=== PATIENT | male | born 1960 | race Caucasian/White ===

== ENCOUNTER 2017-02-08 13:24 | Emergency (ER) | payer OTHER ==
[~2017-02-08] VITALS: Wt 64.0 kg
[2017-02-08] MEDS ORDERED: ACETAMINOPHEN 325 MG TAB PO STA (13:58)
[2017-02-08] MEDS ORDERED: IBUPROFEN 600 MG TAB PO STA (13:58)
[2017-02-08] MEDS ORDERED: ACET325T33 PO (14:02)
[2017-02-08 14:40] VITALS: BP 145/84; PULSE 67; RESP 16; TEMP 98.2
--- NOTE | 2017-02-08 16:18 | ERD ---
ER Documentation Chief Complaint Date/Time DATE: 02/08/17 TIME: 16:15 Chief Complaint fever and body pain for the past few days. no distress noted.no recent uri HPI This is a [id number]-year-old male presenting to the emergency department stating that he feels like he has body aches and chills since Saturday. Patient states that he has not checked his temperature. Patient denies any cough, chest pain, shortness of breath painful urination, abdominal pain. He denies any medical problems or taking any medications. ROS All systems reviewed and are negative except as per history of present illness. Medications Home Meds Active Scripts Acetaminophen* (Tylenol*) 325 Mg Tablet, 2 TAB PO Q4 Y for PAIN AND OR ELEVATED TEMP, #20 TAB Prov:HOWARD HENDRICKS PA-C 02/08/17 PMhx/Soc Medical and Surgical Hx: pt denies Medical Hx History of Surgery: Yes (right inguinal hernia repair) Anesthesia Reaction: No Hx Alcohol Use: No Hx Substance Use: No Hx Tobacco Use: No Smoking Status: Never smoker Physical Exam Vitals Vital Signs Date Time Temp Pulse Resp B/P Pulse Ox O2 Delivery O2 Flow Rate FiO2 02/08/17 14:40 98.2 67 16 145/84 96 Room Air 02/08/17 13:28 99.9 82 21 125/80 96 Physical Exam Const: Well-developed well-nourished no acute distress Head: Atraumatic Eyes: Normal Conjunctiva ENT: Normal External Ears, Nose and Mouth. Neck: Full range of motion..~ No meningismus. Resp: Clear to auscultation bilaterally Cardio: Regular rate and rhythm, no murmurs Abd: Soft, non tender, non distended. Normal bowel sounds Skin: No petechiae or rashes Back: No midline or flank tenderness Ext: No cyanosis, or edema Neur: Awake and alert Psych: Normal Mood and Affect Results 24 hrs Laboratory Tests Test 02/08/17 14:19 Bedside Glucose 126mg/dL Current Medications Medications (Trade) Dose Ordered Sig/Jony Route PRN Reason Start Time Stop Time Status Last Admin Dose Admin Acetaminophen (Tylenol Tab) 650 mg ONCE STAT PO 02/08/17 13:58 02/08/17 14:00 DC 02/08/17 14:19 Ibuprofen (Motrin) 600 mg ONCE STAT PO 02/08/17 13:58 02/08/17 14:00 DC 02/08/17 14:19 Procedures/MDM This is a 56-year-old male presenting to the emergency department complaining of body aches and chills since Saturday. On examination I patient looks well. Patient does not have any fever he has stable vital signs. Patient's lungs are clear to auscultation bilaterally, at this time he looks well. EKG was done in the ED and was unremarkable for STEMI. An Accu-Chek did not show any evidence of diabetes at this time. I will low suspicion for pneumonia, strep pharyngitis , otitis media. I discussed with patient to follow-up with his primary care physician for a full workup. I discussed with him to return to the ER for any worsening symptoms. He understands and agrees with this plan. EKG: read and signed off by myself and Dr. Garvey Rate/Rhythm: Normal Sinus Rhythm 71 bpm QRS, ST, T-waves: No changes consistent w/ acute ischemia Impression: No evidence of ischemia or arrhythmia Departure Diagnosis: Primary Impression: Fatigue Condition: Stable Patient Instructions: Weakness, Unk Cause [facility] Usted se montgomery hecho un examen mdico de control que le indica que no est en bernadine condicin que requiera tratamiento urgente en el Departamento de Emergencia. Un estudio ms profundo y el tratamiento de husain condicin pueden esperar sin ningn riesgo hasta que usted sea atendida/o en el consultorio de husain mdico o bernadine cl shaheen. Es responsabilidad suya arreglar bernadine aaron para el seguimiento del ivelisse. MANEJO DE CONDICIONES NO URGENTES EN EL FUTURO 1) Si usted tiene un mdico de atencin primaria: Usted debera llamar a husain mdico de atencin primaria antes de venir al departamento de emergencia. Despus de las horas de consultorio, husain doctor o husain asociado/a est disponible por telfono. El mdico o enfermero de janes en el servicio telefnico puede asesorarle por mario medio para atender el problema, o ivelisse contrario se puede programar bernadine aaron. 2) Si usted no tiene un mdico de atencin primaria: Llame al mdico o clnica de referencia que aparece abajo janneth las horas de consultorio para hacer bernadine aaron para que le vean. CLINICAS: [facility] [phone] [facility] [phone] [facility] [phone] [place] [id number] [phone] [place] [id number] [phone] [facility] [phone] [address] Additional Instructions: Visite a husain mdico maana para un EXAMEN.Regrese a estas instalaciones si no se mejora hesham esperbamos o hesham le dijimos. [place] toda la medicina walter y hesham se le indic. Regrese a estas instalaciones si no se mejora hesham esperbamos o hesham le dijimos. HOWARD HENDRICKS PA-C Feb 08, 2017 16:18
== END 2017-02-08 14:42 | disposition home or self-care (01) ==
LOC: FTE 13:24
DX: R53.83 Other fatigue (principal)
CPT/HCPCS: 82962; Z7502; Z7610; 93005